=== PATIENT | female | born 1960 | race Caucasian/White ===

== ENCOUNTER → 2016-07-15 | Outpatient (CLI) | payer OTHER, BC ==
[~2016-07-15] MED LIST: ACET-749 PO; AMX875 PO; WLLXL300 PO
--- NOTE | 2016-07-15 10:29 | DIAGNOSTIC IMAGING REPORT ---
LEFT FOOT MIN 3 VIEWS ROUTINE CLINICAL HISTORY: Left foot pain status post trauma COMPARISON: None. DISCUSSION: No acute fractures are visualized. 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 There are no subluxations. There is a tiny plantar calcaneal spur IMPRESSION: 1. Mild degenerative change 2. No acute fractures identified Electronically signed by: Dilan Junior M.D. 07/15/2016 10:27 AM Dictated Date/Time: 07/15/2016 10:27 AM
== END | disposition home or self-care (01) ==
LOC: C.RAD1850 10:14
PROVIDERS: ATTEND Physician Assistant
DX: S90.32XA Contusion of left foot, initial encounter (principal); X58.XXXA Exposure to other specified factors, initial encounter

== ENCOUNTER → 2016-08-26 | Outpatient (CLI) | payer OTHER ==
--- NOTE | 2016-08-26 16:21 | DIAGNOSTIC IMAGING REPORT ---
LEFT FOOT MIN 3 VIEWS ROUTINE CLINICAL HISTORY: Left foot pain. Trauma. COMPARISON: 07/15/2016 DISCUSSION: No acute fractures or dislocations are visualized. There is a tiny plantar calcaneal spur. Degenerative changes are present the level of the first metatarsal phalangeal joint. IMPRESSION: Mild degenerative change. No acute or healing fractures identified. Electronically signed by: Dilan Junior M.D. 08/26/2016 4:19 PM Dictated Date/Time: 08/26/2016 4:18 PM
== END | disposition home or self-care (01) ==
LOC: C.RAD1850 16:04
PROVIDERS: ATTEND Physical Medicine & Rehabilitation Sports Medicine
DX: S90.32XA Contusion of left foot, initial encounter (principal); X58.XXXA Exposure to other specified factors, initial encounter

== ENCOUNTER → 2017-04-27 | Outpatient (CLI) | payer OTHER ==
--- NOTE | 2017-04-27 10:37 | DIAGNOSTIC IMAGING REPORT ---
R KNEE 1 OR 2 VIEWS ROUTINE CLINICAL HISTORY: Right knee pain status post trauma COMPARISON: None. DISCUSSION: No fractures or dislocations are visualized. IMPRESSION: No fractures identified. Electronically signed by: Dilan Junior M.D. 04/27/2017 10:35 AM Dictated Date/Time: 04/27/2017 10:35 AM
== END | disposition home or self-care (01) ==
LOC: C.RAD1850 10:24
PROVIDERS: ATTEND Nurse Practitioner Adult Health
DX: M25.561 Pain in right knee (principal); M79.604 Pain in right leg; Z91.81 History of falling